=== PATIENT | male | born 1960 | race Caucasian/White ===

== ENCOUNTER 2023-03-12 09:44 | Emergency (ER) | payer BC, OTHER ==
[2023-03-12 09:57] VITALS: RESP 18; TEMP 98.9; BMI 25.8
[2023-03-12] MEDS ORDERED: MAG HYDROX/AL HYDROX/SIMETH -MYLANTA- ORAL SUSPENSION PO ONE (10:23)
[2023-03-12] MEDS ORDERED: FAMOTIDINE 20 MG/50 ML IVPB 20 MG/50 ML MG IVPB ONE ×2 (10:23→10:25)
[2023-03-12] MEDS ORDERED: MAG HYDROX/AL HYDROX/SIMETH 30 ML UNIT-DOSE CUP ONE (10:25)
[2023-03-12 11:01] LABS: ALBUMIN 4.6 g/dl (3.4-5.0); BILIRUBIN,TOTAL 0.9 mg/dl (0.2-1); CALCIUM 8.8 mg/dl (8.5-10); CREATININE 0.9 mg/dl (0.55-1.3); TOT PROT 7.3 g/dl (6.4-8.2)
[2023-03-12] MEDS ORDERED: LORazepam 0.5 MG TABLET PO ONE (11:03)
[2023-03-12] MEDS ORDERED: LORazepam 0.5 MG TABLET ONE (11:07)
[2023-03-12 12:42] LABS: HEMATOCRIT 42.5 % (35.4-49); HEMOGLOBIN 15.1 GM/dL (11.7-16.9); MCH 29.6 pg (25.7-33.7); MCHC 35.6 g/dl (32.0-35.9); MEAN CELL VOLUME 83.2 fl (80-96); MEAN PLT VOLUME 9.8 fl (7.5-11.1); PLATELET COUNT 175 10^3/uL (134-434); WHITE BLOOD COUNT 5.7 K/mm3 (4.0-10.0)
[2023-03-12 13:32] LABS: BASO % 0.5 % (0-2.0); EOS % 0.2 % (0-4.5); LYMPH % 8.1 % (8-40); MONO % 4.2 % (3.8-10.2)
[2023-03-12 13:33] VITALS: BP 134/89; PULSE 79
== END 2023-03-12 13:25 | disposition home or self-care (01) ==
LOC: FER 09:44
PROC: 3E033GC Introduction of Other Therapeutic Substance into Peripheral Vein, Percutaneous Approach (ICD-10-PCS; principal; 2023-03-12)
DX: R00.2 Palpitations (principal); R25.1 Tremor, unspecified
CPT/HCPCS: 36415; 80053; 82550; 84484; 85025; 93005; 99284-25